=== PATIENT | female | born 1965 | race Caucasian/White ===

== ENCOUNTER → 2016-09-04 | Outpatient (CLI) | payer BC ==
--- NOTE | 2016-09-07 07:22 | MM ---
Reason for exam: clinical finding. Last mammogram was performed 1 year and 2 months ago. History: Patient is postmenopausal. Family history of premenopausal breast cancer in mother at age 31. Benign stereotactic core biopsy of the right breast, September 27, 2001. Core biopsy of the right breast. Took progesterone for 4 months beginning at age 50. Indicated problem(s): pain in the right breast. Physical Findings: Nurse Summary: 1cm nodule in the right breast at 1 o'clock (nurse mm). MG 3D Diag Mammo W/Cad CL[facility]ITA Bilateral CC and MLO view(s) were taken. Prior study comparison: June 27, 2015, bilateral MG screening mammo w CAD. December 25, 2013, bilateral MG screening mammo w CAD. The breast tissue is heterogeneously dense. This may lower the sensitivity of mammography. Previous mammotome biopsy in the right breast. No significant new findings when compared with previous films. These results were verbally communicated with the patient and result sheet given to the patient on 09/04/16. ASSESSMENT: Benign, BI-RAD 2 RECOMMENDATION: Routine screening mammogram of both breasts in 1 year.
--- NOTE | 2016-09-07 07:23 | USB ---
Reason for exam: clinical finding. History: Patient is postmenopausal. Family history of premenopausal breast cancer in mother at age 31. Benign stereotactic core biopsy of the right breast, September 27, 2001. Core biopsy of the right breast. Took progesterone for 4 months beginning at age 50. Indicated problem(s): pain in the right breast. US Breast Limited RT Right breast ultrasound demonstrates no cystic or solid lesion seen. These results were verbally communicated with the patient and result sheet given to the patient on 09/04/16. ASSESSMENT: Negative, BI-RAD 1 RECOMMENDATION: Routine screening mammogram of both breasts in 1 year.
== END | disposition home or self-care (01) ==
LOC: RADMAMWWP 15:33
PROVIDERS: ATTEND Obstetrics & Gynecology
DX: N64.4 Mastodynia (principal); Z80.3 Family history of malignant neoplasm of breast
CPT/HCPCS: 76642; G0204; G0279

== ENCOUNTER → 2017-02-05 | Outpatient (CLI) | payer BC | LOC: LABWHC1 16:57 | PROVIDERS: ATTEND Internal Medicine Endocrinology, Diabetes & Metabolism | DX: E03.8 Other specified hypothyroidism (principal) | CPT/HCPCS: 36415; 82533; 84443 ==

== ENCOUNTER → 2017-03-02 | Outpatient (CLI) | payer BC ==
--- NOTE | 2017-03-02 21:16 | US ---
EXAMINATION TYPE: US thyroid st tissue head/neck DATE OF EXAM: 03/02/2017 COMPARISON: NONE CLINICAL HISTORY: E03.8 Other specified Hypothyroidism. on thyroid meds for yrs GLAND SIZE: Right Lobe: 3.5 x 1.1 x 0.9 cm Overall Parenchyma: homogenous Left Lobe: 3.8 x 1.3 x 1.1 cm Overall Parenchyma: homogeneous Isthmus Thickness: 0.2 cm NODULES RIGHT: # of nodules measured on right: 0 LEFT: # of nodules measured on left: 0 ISTHMUS: # of nodules measured in the isthmus: 0 Bilateral neck scanned, no evidence of lymphadenopathy. Thyroid gland is overall small in size and homogeneous echotexture without evidence of worrisome grea ter than 1 cm solid or cystic nodules. IMPRESSION: Small thyroid gland without suspicious nodules.
== END | disposition home or self-care (01) ==
LOC: RADUSWWP 16:13
PROVIDERS: ATTEND Internal Medicine Endocrinology, Diabetes & Metabolism
DX: E03.8 Other specified hypothyroidism (principal)
CPT/HCPCS: 76536

== ENCOUNTER → 2017-08-17 | Outpatient (CLI) | payer BC ==
--- NOTE | 2017-08-17 17:40 | XR ---
EXAMINATION TYPE: XR chest 2V DATE OF EXAM: 08/17/2017 COMPARISON: NONE HISTORY: Rib pain TECHNIQUE: Frontal and lateral views of the chest are obtained. FINDINGS: Heart and mediastinum are normal. Lungs are clear. Diaphragm is normal. Bony thorax and so ft tissues appear normal. IMPRESSION: Normal chest
== END | disposition home or self-care (01) ==
LOC: RADXRMAIN 16:44
PROVIDERS: ATTEND Family Medicine
DX: R07.9 Chest pain, unspecified (principal)
CPT/HCPCS: 71046

== ENCOUNTER → 2017-10-25 | Outpatient (CLI) | payer BC ==
--- NOTE | 2017-10-25 17:45 | CT ---
EXAMINATION TYPE: CT pelvis w con DATE OF EXAM: 10/25/2017 COMPARISON: NONE HISTORY: Left inguinal hernia. CT DLP: 1357 mGycm Automated exposure control for dose reduction was used. CONTRAST: Performed with IV Contrast, patient injected with 100ml mL of Omnipaque 300. FINDINGS: Bladder distends smoothly. There is no free fluid in the pelvis. There are a few sigmoid diverticula. There is no sign of diverticulitis. Appendix appears normal. I see no evidence of a pelvic mass. [place] donnell appears to be absent. There is narrowing at L5-S1 disc space. Hip joints appear intact. There is no evidence of inguinal hernia. I see no bony destructive process. IMPRESSION: THERE ARE A FEW SIGMOID DIVERTICULA. NO EVIDENCE OF DIVERTICULITIS. OTHERWISE NEGATIVE EXAM. NO EVIDE NCE OF INGUINAL HERNIA.
== END | disposition home or self-care (01) ==
LOC: RADCTMAIN 15:53
PROVIDERS: ATTEND Surgery
DX: K57.30 Diverticulosis of large intestine without perforation or abscess without bleeding (principal)
CPT/HCPCS: 72193; Q9967

== ENCOUNTER 2017-11-12 12:38 | Day surgery (SDC) | payer BC ==
[2017-11-11 08:12] VITALS: BMI 30.5
[~2017-11-12 12:38] MED LIST: LACTATED RINGERS 1,000 ML IV SCH
[2017-11-12 13:45] VITALS: TEMP 97.9
[2017-11-12] MEDS ORDERED: LIDOCAINE 1% 20 ML VIAL (10MG/ML) FOR IV START INTRADERMA ONE (14:11)
[2017-11-12] MEDS ORDERED: FAMOTIDINE 20 MG/2 ML VIAL IVP ONE (14:15)
[2017-11-12] MEDS ORDERED: PROPOFOL 10 MG/ML 20 ML VIAL IV ONE (14:35)
[2017-11-12] MEDS ORDERED: LIDOCAINE 1% INJ 10MG/ML (20 ML MDV) ONE (14:35)
[2017-11-12] MEDS ORDERED: GLYCOPYRROLATE 0.2 MG/ML 2 ML VIAL ONE (14:35)
--- NOTE | 2017-11-12 14:39 | P.GSHP ---
History of Present Illness H&P Date: 11/12/17 Chief Complaint: GERD This a 52-year-old female referred from Dr. Blackman. Patient is today for EGD. She's had GERD symptoms. Past Medical History Past Medical History: GERD/Reflux, Thyroid Disorder Additional Past Medical History / Comment(s): HIATAL HERNIA, DURHAM'S ESOPHAGUS History of Any Multi-Drug Resistant Organisms: None Reported Past Surgical History: Hysterectomy Additional Past Surgical History / Comment(s): PREVIOUS EGD, BENIGN TUMOR REMOVED FROM SHOULDER, LAPROSCOPY Past Anesthesia/Blood Transfusion Reactions: Previous Problems w/ Anesthesia, Motion Sickness Additional Past Anesthesia/Blood Transfusion Reaction / Comment(s): STATES "I FREAK OUT IF THEY DON'T PUT ME OUT BEFORE THE MOUTHPIECE FOR EGD" Smoking Status: Current every day smoker - Past Family History Mother Family Medical History: Cancer Father Family Medical History: Cancer Medications and Allergies Home Medications Medication Instructions Recorded Confirmed Type Esomeprazole Magnesium [NexIUM] 40 mg PO DAILY 08/06/16 11/12/17 History Cholecalciferol (Vitamin D3) 2,000 unit PO DAILY 11/11/17 11/11/17 History [Vitamin D3] Levothyroxine Sodium [Tirosint] 88 mcg PO DAILY 11/11/17 11/11/17 History Magnesium Oxide [Mag-Ox] 250 mg PO DAILY 11/11/17 11/11/17 History buPROPion HCL [buPROPion HCL SR] 150 mg PO HS 11/11/17 11/12/17 History Allergies Allergy/AdvReac Type Severity Reaction Status Date / Time No Known Allergies Allergy Verified 11/11/17 08:08 Surgical - Exam Vital Signs Temp Pulse Resp BP Pulse Ox 97.9 F 59 L 18 102/58 100 11/12/17 13:43 11/12/17 13:43 11/12/17 13:43 11/12/17 13:43 11/12/17 13:43 - General well developed, no distress - Eyes PERRL - ENT normal pinna - Neck no masses - Respiratory normal expansion - Cardiovascular Rhythm: regular - Abdomen Abdomen: soft, non tender Assessment and Plan Assessment: GERD. We'll perform EGD.
--- NOTE | 2017-11-12 14:48 | P.OP ---
Date of Procedure: 11/12/17 Preoperative Diagnosis: GERD Postoperative Diagnosis: Antral gastritis No evidence of hiatal hernia Esophagitis Procedure(s) Performed: EGD Anesthesia: MAC Surgeon: Clive Davis Pathology: other (Antrum, esophagus) Condition: stable Disposition: PACU Description of Procedure: The patient's placed on the endoscopy table in the lateral position. She received IV sedation. The gastroscope placed oropharynx and passed into the esophagus and into the stomach. Scope was then placed through the pylorus. The first and second portion of the duodenum appeared normal. Scope was then brought back the antrum and this appeared mildly inflamed. A biopsy was performed. There was no evidence of a hiatal hernia. The GE junction was at 39 cm. The distal esophagus. Inflamed and a biopsies performed. The proximal esophagus appeared normal. Scope was withdrawn for patient.
[2017-11-12 14:55] VITALS: PULSE 86; RESP 16
[2017-11-12 15:08] VITALS: BP 116/71
== END 2017-11-12 15:34 | disposition home or self-care (01) ==
LOC: ORWHC2ENDO 12:38
PROVIDERS: ATTEND Surgery
DX: K29.60 Other gastritis without bleeding (principal); K21.0 Gastro-esophageal reflux disease with esophagitis; E07.9 Disorder of thyroid, unspecified; K22.70 Barrett's esophagus without dysplasia; F17.200 Nicotine dependence, unspecified, uncomplicated; Z79.899 Other long term (current) drug therapy
CPT/HCPCS: 88305; 43239; J2001; J2704

== ENCOUNTER → 2018-01-07 | Outpatient (CLI) | payer BC | END | disposition home or self-care (01) | LOC: LABWHC1 08:26 | PROVIDERS: ATTEND Internal Medicine Endocrinology, Diabetes & Metabolism | DX: R53.83 Other fatigue (principal); Z78.0 Asymptomatic menopausal state | CPT/HCPCS: 36415; 84403 ==

== ENCOUNTER → 2018-02-15 | Outpatient (CLI) | payer BC ==
--- NOTE | 2018-02-17 10:39 | MM ---
Reason for exam: screening (asymptomatic). Last mammogram was performed 1 year and 5 months ago. History: Patient is postmenopausal. Family history of premenopausal breast cancer in mother at age 31. Benign stereotactic core biopsy of the right breast, September 27, 2001. Core biopsy of the right breast. Took progesterone for 4 months beginning at age 50. Physical Findings: A clinical breast exam by your physician is recommended on an annual basis and results should be correlated with mammographic findings. MG 3D Screening Mammo W/Cad Bilateral CC and MLO view(s) were taken. Prior study comparison: September 04, 2016, bilateral MG 3d diag mammo w/cad [facility]. June 27, 2015, bilateral MG screening mammo w CAD. The breast tissue is heterogeneously dense. This may lower the sensitivity of mammography. No suspicious abnormality. Post biopsy change on the right. Right biopsy marker noted. No significant changes when compared with prior studies. ASSESSMENT: Benign, BI-RAD 2 RECOMMENDATION: Routine screening mammogram of both breasts in 1 year.
== END | disposition home or self-care (01) ==
LOC: RADMAMWWP 08:30
PROVIDERS: ATTEND Obstetrics & Gynecology
DX: Z12.31 Encounter for screening mammogram for malignant neoplasm of breast (principal)
CPT/HCPCS: 77063; 77067

== ENCOUNTER → 2018-04-01 | Outpatient (CLI) | payer BC | END | disposition home or self-care (01) | LOC: LABWHC1 09:38 | PROVIDERS: ATTEND Internal Medicine Endocrinology, Diabetes & Metabolism | DX: E03.8 Other specified hypothyroidism (principal) | CPT/HCPCS: 36415; 84403; 84443 ==

== ENCOUNTER → 2018-07-04 | Outpatient (CLI) | payer BC ==
--- NOTE | 2018-07-04 12:47 | FL ---
EXAMINATION: Upper GI examination DATE: 07/04/2018 CLINICAL INDICATION: 52-year-old female with gastroesophageal reflux disease, patient states history of Donohue's esophagus, complaining of GERD and burning in stomach. COMPARISON: None Total Fluoroscopy Time: 4 minutes 54 seconds Total images: 44 FINDINGS: The esophagus has a normal course, caliber, motility and mucosa. There is a tiny hiatal hernia. Mild spontaneous gastroesophageal reflux is encountered when the patie nt is brought supine. The stomach trace free of any persistent filling defect and demonstrate a normal mucosal pattern. No discrete polyp or ulcer is identified. There is significant delay in passage of contrast into the duodenum. No contrast is seen in the duode num after 10 minutes of waiting. The patient is brought back for further imaging 35 minutes later at which time, contrast opacifies multiple small bowel loops. Some residual contrast remains in stomach but the majority has progressed into the small bowel. The duodenum shows no discrete abnormality. IMPRESSION: 1. No suspicious filling defect or ulcer seen within the esophagus or stomach. 2. Tiny hiatal hernia and mild gastroesophageal reflux. 3. Delayed passage of contrast from the stomach into the duodenum with no passage after waiting 10 mi nutes. Correlate for any signs/symptoms of gastroparesis. If indicated, a nuclear medicine gastric em ptying study can be considered.
== END | disposition home or self-care (01) ==
LOC: RADFLWHC 08:07
PROVIDERS: ATTEND Physician Assistant
DX: K21.9 Gastro-esophageal reflux disease without esophagitis (principal); K44.9 Diaphragmatic hernia without obstruction or gangrene
CPT/HCPCS: 74240

== ENCOUNTER → 2018-11-17 | Outpatient (CLI) | payer BC | END | disposition home or self-care (01) | LOC: LABWHC1 17:05 | PROVIDERS: ATTEND Internal Medicine Endocrinology, Diabetes & Metabolism | DX: E03.8 Other specified hypothyroidism (principal) | CPT/HCPCS: 36415; 84403; 84443 ==

== ENCOUNTER → 2019-03-10 | Outpatient (CLI) | payer BC ==
[2019-03-10 16:31] LABS: Basophils # (A) 0.1 k/uL (0-0.2); Basophils % (A) 1 %; Eosinophils # (A) 0.2 k/uL (0-0.7); Eosinophils % (A) 3 %; Lymphocytes # (A) 2.5 k/uL (1.0-4.8); Lymphocytes % (A) 40 %; MCH 31.4 pg (25.0-35.0); MCHC 33.4 g/dL (31.0-37.0); Mean Platelet Volume 8.3; Monocytes # (A) 0.3 k/uL (0-1.0); Monocytes % (A) 5 %; Neutrophils # (A) 3.1 k/uL (1.3-7.7); Neutrophils % (A) 49 %; Platelet Count 318 k/uL (150-450); RBC 4.47 m/uL (3.80-5.40); RDW 13.7 % (11.5-15.5); WBC 6.3 k/uL (3.8-10.6)
[2019-03-10 23:27] LABS: African American GFR (CKD) 97.6 (60.0-200.0); Albumin 4.7 g/dL (3.80-4.90); Albumin/Globulin Ratio 2.47 (1.60-3.17); Anion Gap 6.9 mmol/L (4.00-12.00); BUN/Creat Ratio 18.75 Ratio (12.00-20.00); Calcium 9.9 mg/dL (8.7-10.3); Carbon Dioxide 25.1 mmol/L (21.6-31.8); Globulin 1.9 g/dL (1.6-3.3); Potassium 4.4 mmol/L (3.5-5.5); Total Bilirubin 0.5 mg/dL (0.2-1.2); Total Protein 6.6 g/dL (6.2-8.2)
[2019-03-10 23:34] LABS: T4, Free (Free Thyroxine) 1.1 ng/dL (0.80-1.80)
[2019-03-11 00:03] LABS: Cancer Antigen 19-9 13.5 U/mL (0.0-34.9)
== END | disposition home or self-care (01) ==
LOC: LABWHC1 15:52
PROVIDERS: ATTEND Family Medicine
DX: R14.0 Abdominal distension (gaseous) (principal); R30.0 Dysuria; R10.84 Generalized abdominal pain
CPT/HCPCS: 36415; 80053; 82105; 82378; 83615; 83690; 83721; 84439; 84443; 84478; 85025; 86301; 86304

== ENCOUNTER → 2019-04-03 | Outpatient (CLI) | payer BC ==
--- NOTE | 2019-04-04 11:16 | MM ---
Reason for exam: screening (asymptomatic). Last mammogram was performed 1 year and 2 months ago. History: Patient is postmenopausal. Family history of premenopausal breast cancer in mother at age 31. Benign stereotactic core biopsy of the right breast, September 27, 2001. Core biopsy of the right breast. Took progesterone for 4 months beginning at age 50. Physical Findings: A clinical breast exam by your physician is recommended on an annual basis and results should be correlated with mammographic findings. MG 3D Screening Mammo W/Cad Bilateral CC and MLO view(s) were taken. Prior study comparison: February 15, 2018, bilateral MG 3d screening mammo w/cad. September 04, 2016, bilateral MG 3d diag mammo w/cad [facility]. The breast tissue is heterogeneously dense. This may lower the sensitivity of mammography. Previous mammotome biopsy in the right breast. There is no discrete abnormality. ASSESSMENT: Benign, BI-RAD 2 RECOMMENDATION: Routine screening mammogram of both breasts in 1 year.
== END | disposition home or self-care (01) ==
LOC: RADMAMWWP 15:13
PROVIDERS: ATTEND Obstetrics & Gynecology
DX: Z12.31 Encounter for screening mammogram for malignant neoplasm of breast (principal); Z80.3 Family history of malignant neoplasm of breast
CPT/HCPCS: 77063; 77067

== ENCOUNTER → 2020-01-04 | Outpatient (CLI) | payer BC ==
--- NOTE | 2020-01-04 09:40 | USB ---
Reason for exam: clinical finding. History: Patient is postmenopausal. Family history of premenopausal breast cancer in mother at age 31. Benign stereotactic core biopsy of the right breast, September 27, 2001. Core biopsy of the right breast. Took progesterone for 1 year beginning at age 50. Indicated problem(s): pain in the right breast. Physical Findings: Nurse Summary: Patient complains of constant pain right upper outer quadrant x 2 months (nurse TM). US Breast RT Technologist: Carola Thomas Right complete breast ultrasound includes all four quadrants, the retroareolar region and axilla. Finding demonstrates a 0.8 x 0.6 x 0.5cm circular, cystic lesion at 9 o'clock with internal echoes, a 0.8 x 0.6 x 0.4cm irregular, mixed lesion at 9 o'clock and a 0.9 x 1.0 x 0.7cm spiculated lesion at 9 o'clock, taller than wide, biopsy recommended. These results were verbally communicated with the patient and result sheet given to the patient on 01/04/20. ASSESSMENT: Incomplete: need additional imaging evaluation, BI-RAD 0 RECOMMENDATION: Follow-up diagnostic mammogram and ultrasound core biopsy of the right breast. Patient will return at a later date for mammogram. Called Dr. Fofana's office with mammographic findings and has scheduled an appointment for the patient for 01/12/20 at 1:[address] Tucker. Biopsy scheduled for 01/15/20 at 12:20. PRELIMINARY REPORT CALLED AND FAXED TO DR. TUCKER ON 01/04/20.
== END | disposition home or self-care (01) ==
LOC: RADUSWWP 07:32
PROVIDERS: ATTEND Obstetrics & Gynecology
DX: N64.4 Mastodynia (principal)

== ENCOUNTER → 2020-01-12 | Outpatient (CLI) | payer BC | END | disposition home or self-care (01) | LOC: LABWHC1 10:10 | PROVIDERS: ATTEND Surgery | DX: Z11.59 Encounter for screening for other viral diseases (principal) ==

== ENCOUNTER → 2020-01-12 | Outpatient (CLI) | payer BC ==
[2020-01-12 13:21] VITALS: BP 108/74; PULSE 74; RESP 18; TEMP 97.9
--- NOTE | 2020-01-12 14:04 | P.GSHP ---
History of Present Illness H&P Date: 01/12/20 Chief Complaint: abnormal ultrasound right breast Mary Kay is a 54 year old white female with a complaint of pain in the right breast in the UOQ area seen in consultation for Dr. Blackman and Dr. Fofana. The pain has been persistent. The pain is described as sharp with pressure. No nipple discharge or changes. NO skin changes. NO history of trauma. She had a right breast detected core biopsy in 2001 which was benign. She had a bilateral mammogram performed this was benign BIRADS 2. After the pain started she had an ultrasound of the right breast and this revealed a 0.8 x 0.6 x 0.4 cm irregular mixed lesion at 9:00, and a 0.9 x 1 x 0.7 cm spiculated lesion at 9:00 tolerated wide for which biopsy is recommended. She then had a repeat right breast mammogram which did not show any specific lesions of concern. Caffeine: she drinks 5 cups/coffee day, and ice tea through the day Smokin08/17, 40 years second hand smoke: none chocolate: occasional hormones: Pellet placed for menopausal symptoms/estrogen and testosterone, placed every 4 months and she has had them for approximately 8 months. last one placed November 29 Katalina risk analysis: 5 year risk 2.6%, vs. 1.4 % lifetime risk: 17.9% vs. 10.4% Family History mother: breast cancer at 31, during , than a cancer in the other breast at 50, of breast cancer at 63; she had no genetic testing father: liver cancer, "drinker" Hormonal history: menarche: 13 , breast fed: no, age at first birst: 21 menopause: hysterectomy 2001 at 33 did not take ovaries, for endometriosis BCP: 1 year hormones: 8 months Surgical history: 1. Hysterectomy 2. Ganglion cyst left wrist 3. Benign tumor removed right shoulder Medical history: 1. Hypothyroid Social history: Smoking: Half a pack per day for 40 years Alcohol: Negative Drugs: Negative - Constitutional Constitutional: Denies chills, Denies fever - EENT Eyes: denies blurred vision, denies pain Ears: deny: decreased hearing, tinnitus Ears, nose, mouth and throat: Denies headache, Denies sore throat - Breasts Breasts: bilateral: as per HPI - Cardiovascular Cardiovascular: Denies chest pain, Denies shortness of breath - Respiratory Respiratory: Denies cough, Denies 7 - Gastrointestinal Gastrointestinal: Denies abdominal pain, Denies diarrhea, Denies nausea, Denies vomiting - Genitourinary (Female) Genitourinary: Denies dysuria, Denies hematuria - Menstruation Menstruation: Reports post hysterectomy - Musculoskeletal Comment: arthritis in knees Musculoskeletal: Reports as per HPI - Integumentary Integumentary: Denies pruritus, Denies rash - Neurological Neurological: Denies numbness, Denies weakness - Endocrine Endocrine: Denies fatigue, Denies weight change - Hematologic/Lymphatic Comment: none - Allergic/Immunologic Allergic/Immunologic: Reports as per HPI Past Medical History Past Medical History: GERD/Reflux, Thyroid Disorder Additional Past Medical History / Comment(s): HIATAL HERNIA. DURHAM'S ESOPHAGUS History of Any Multi-Drug Resistant Organisms: None Reported Past Surgical History: Hysterectomy Additional Past Surgical History / Comment(s): BENIGN TUMOR REMOVED FROM RIGHT SHOULDER. RIGHT BREAST EXCISIONAL BIOPSY-BENIGN- 1999. Past Anesthesia/Blood Transfusion Reactions: Previous Problems w/ Anesthesia, Motion Sickness Additional Past Anesthesia/Blood Transfusion Reaction / Comment(s): STATES "I FREAK OUT IF THEY DON'T PUT ME OUT BEFORE THE MOUTHPIECE FOR EGD" Past Psychological History: No Psychological Hx Reported Smoking Status: Current every day smoker Past Alcohol Use History: Rare Additional Past Alcohol Use History / Comment(s): SMOKES LESS THAN 1PPD FROM AGE 20 Past Drug Use History: None Reported - Past Family History Mother Family Medical History: Cancer Father Family Medical History: Cancer Medications and Allergies Home Medications Medication Instructions Recorded Confirmed Type Esomeprazole Magnesium [NexIUM] 40 mg PO DAILY 08/06/16 01/12/20 History Fexofenadine HCl [Helen Allergy] 180 mg PO DAILY 01/09/20 01/12/20 History Levothyroxine Sodium [Unithroid] 88 mcg PO DAILY 01/09/20 01/12/20 History Nicotine [Nicoderm Cq] 21 mg TRANSDERM DAILY 01/09/20 01/12/20 History predniSONE 1 mg PO DAILY 01/09/20 01/12/20 History Allergies Allergy/AdvReac Type Severity Reaction Status Date / Time grass pollen Allergy Rash/Hives Unverified 01/12/20 13:13 wheat Allergy Rash/Hives Unverified 01/12/20 13:13 Surgical - Exam Vital Signs Temp Pulse Resp BP Pulse Ox 97.9 F 74 18 108/74 98 01/12/20 13:15 01/12/20 13:15 01/12/20 13:15 01/12/20 13:15 01/12/20 13:15 BMI 33.5 - General well developed, no distress - Eyes normal ocular movement - ENT no hearing loss, no congestion - Neck no masses, trachea midline - Respiratory normal respiratory effort, clear to auscultation - Cardiovascular Rhythm: regular Heart Sounds: normal: S1, S2 - Abdomen Abdomen: soft, non tender, no guarding, no rigid, no rebound - Integumentary normal turgor - Neurologic no disoriented, no combative - Musculoskeletal normal gait, normal posture - Psychiatric oriented to time, oriented to person, oriented to place, speech is normal, memory intact breast exam: BRA 40DD inspection: Ptosis grade 2/3 No nipple inversion Palpation: Right breast: Multi-positional exam mild increase fullness right upper outer quadrant area near 9:00, no discrete dominant mass or nodule noted otherwise no masses or nodules of concern, fibrocystic changes Right axilla: No adenopathy of concern Left breast: Multi-positional exam fibrocystic changes no dominant mass or nodule of concern Left axilla: No adenopathy of concern Results Mammogram and ultrasound reviewed with Dr. Varma from radiology Assessment and Plan Assessment: Impression: 1. Radiographic abnormality right breast 2. Breast pain right breast upper outer quadrant 3. Fullness on examination right breast upper outer quadrant 4. Fibrocystic breast changes 5. Patient using hormone pellets/postmenopausal 6. Family history of breast cancer in mother at 31 7. high risk for breast cancer katalina risk analysis Plan: 1. Fibrocystic breast changes pain may be exacerbated by caffeine and hormones and smoking the patient understands this and may decrease the subcutaneous 3. Radiographic abnormality right breast at 9:00 ultrasound core biopsy recommended this was reviewed by radiology and if this is not benign specific the needle local excision is recommended 3. Family history of breast cancer in mother at 31. Recommend genetic testing for the patient. CC: DR. Blackman, and Dr. Fofana encounter 45 minutes, > 50% of time in planning and counselling Time with Patient: Greater than 30
--- NOTE | 2020-01-16 09:57 | MM ---
Reason for exam: follow-up at short interval from prior study. Last mammogram was performed 9 months ago. History: Patient is postmenopausal. Family history of premenopausal breast cancer in mother at age 31. Benign stereotactic core biopsy of the right breast, September 27, 2001. Core biopsy of the right breast. Took progesterone for 1 year beginning at age 50. Taking other hormone for 9 months. Physical Findings: See breast exam from 01/04/20. MG 3D Diag Mammo W/Cad RT CC, MLO, and ML view(s) were taken of the right breast. Prior study comparison: April 03, 2019, bilateral MG 3d screening mammo w/cad. February 15, 2018, bilateral MG 3d screening mammo w/cad. September 04, 2016, bilateral MG 3d diag mammo w/cad [facility]. The breast tissue is heterogeneously dense. This may lower the sensitivity of mammography. Previous mammotome biopsy in the right breast. No significant new findings when compared with previous films. These results were verbally communicated with the patient and result sheet given to the patient on 01/12/20. ASSESSMENT: Suspicious, BI-RAD 4 RECOMMENDATION: Ultrasound core biopsy of the right breast. (As recommended on 01/04/20 ultrasound)
== END | disposition home or self-care (01) ==
LOC: RADMAMWWP 10:50
PROVIDERS: ATTEND Surgery
DX: R92.8 Other abnormal and inconclusive findings on diagnostic imaging of breast (principal)
CPT/HCPCS: 77061; 77065

== ENCOUNTER → 2020-01-15 | Day surgery (SDC) | payer BC ==
[2020-01-15 11:42] VITALS: BP 111/74; PULSE 73; RESP 16; TEMP 98.2
--- NOTE | 2020-01-15 13:12 | USB ---
EXAMINATION TYPE: US discontinued breast bx RT DATE OF EXAM: 01/15/2020 CLINICAL HISTORY: 54-year-old female presents with lateral right breast pain and subsequent abnormal ultrasound. TECHNIQUE: Scanning of the 9:00 position of the right breast for the intended biopsy target. COMPARISON: 01/04/2020 FINDINGS: The procedure of ultrasound guided core biopsy was explained to the patient. Benefits, alternatives, and risks were discussed. An informed consent was then obtained. The patient was placed in supine positioning for imaging and for the procedure. Initial scanning shows the vertically oriented area of shadowing at the 9:00 position zone A just peripheral to the periareolar region. The area was scanned in real-time and is reproducible in the antiradial plane. However, in the radial plane, this area spreads out and shows no discrete target for biopsy. (Refer to image 9, 12, and 13). Findings and impression are discussed with the patient and decision is made for a 3 month follow-up ultrasound to reassess. Biopsy is deferred at this time. IMPRESSION: Biopsy deferred at this time as imaging in the radial plane shows the area in question at the 9:00 position to spread out. No discrete biopsy target remains. Three-month follow-up right breast ultrasound is recommended. Findings and impression discussed with the patient. MARISSA
== END ==
LOC: RADUSWWP 11:17
PROVIDERS: ATTEND Surgery
DX: R92.8 Other abnormal and inconclusive findings on diagnostic imaging of breast (principal); Z91.09 Other allergy status, other than to drugs and biological substances; Z91.018 Allergy to other foods

== ENCOUNTER → 2020-04-16 | Outpatient (CLI) | payer BC ==
--- NOTE | 2020-04-17 08:16 | USB ---
Reason for exam: follow-up at short interval from prior study. History: Patient is postmenopausal. Family history of premenopausal breast cancer in mother at age 31. US discontinued breast bx RT of the right breast, January 16, 2020. Benign stereotactic core biopsy of the right breast, September 27, 2001. Core biopsy of the right breast. Took progesterone for 1 year beginning at age 50. Taking other hormone for 9 months. Physical Findings: Nurse did not find any significant physical abnormalities on exam. US Breast Limited RT Technologist: Carola Thomas Right limited breast ultrasound including focal area of concern, retroareolar and axilla demonstrates a 0.7 x 0.6 x 0.5cm oval, hypoechoic lesion at 9 o'clock and a 0.7 x 0.7 x 0.6cm slightly lobular, hypoechoic lesion at 10 o'clock. Stable, likely debris filled cysts. No significant cystic or solid lesion greater than 0.50cm. These results were verbally communicated with the patient and result sheet given to the patient on 04/16/20. ASSESSMENT: Benign, BI-RAD 2 RECOMMENDATION: Follow-up diagnostic mammogram of both breasts.
--- NOTE | 2020-04-17 09:05 | MM ---
Reason for exam: additional evaluation requested from prior study. Last mammogram was performed 3 months ago. History: Patient is postmenopausal. Family history of premenopausal breast cancer in mother at age 31. US discontinued breast bx RT of the right breast, January 16, 2020. Benign stereotactic core biopsy of the right breast, September 27, 2001. Core biopsy of the right breast. Took progesterone for 1 year beginning at age 50. Taking other hormone for 9 months. MG 3D Diag Mammo W/Cad CL[facility] Bilateral CC and MLO view(s) were taken. Prior study comparison: January 12, 2020, right breast MG 3d diag mammo w/cad RT. April 03, 2019, bilateral MG 3d screening mammo w/cad. The breast tissue is heterogeneously dense. This may lower the sensitivity of mammography. Finding: There is a 5 mm indistinct round mass located 6-7 cm from the nipple in the lower quadrant, middle position of the left breast. Previous mammotome biopsy in the right breast. New finding since January 12, 2020 and April 03, 2019. These results were verbally communicated with the patient and result sheet given to the patient on 04/16/20. ASSESSMENT: Incomplete: need additional imaging evaluation, BI-RAD 0 RECOMMENDATION: Ultrasound of the left breast.
--- NOTE | 2020-04-17 09:12 | USB ---
Reason for exam: additional evaluation requested from abnormal screening. History: Patient is postmenopausal. Family history of premenopausal breast cancer in mother at age 31. US discontinued breast bx RT of the right breast, January 16, 2020. Benign stereotactic core biopsy of the right breast, September 27, 2001. Core biopsy of the right breast. Took progesterone for 1 year beginning at age 50. Taking other hormone for 9 months. US Breast Limited LT Technologist: Carola Thomas Left limited breast ultrasound including focal area of concern, retroareolar and axilla demonstrates a 0.7 x 0.7 x 0.4cm cystic, septated lesion at 5 o'clock, a 0.8 x 0.9 x 0.4cm cystic lesion at 6 o'clock and a 0.5 x 0.5 x 0.3cm cystic lesion at 6 o'clock. Thin walled cysts and thin walled cysts with thin septation These results were verbally communicated with the patient and result sheet given to the patient on 04/16/20. ASSESSMENT: Benign, BI-RAD 2 RECOMMENDATION: Routine screening mammogram of both breasts in 1 year.
== END | disposition home or self-care (01) ==
LOC: RADUSWWP 13:39
PROVIDERS: ATTEND Surgery
DX: R92.8 Other abnormal and inconclusive findings on diagnostic imaging of breast (principal)
CPT/HCPCS: 77062; 77066

== ENCOUNTER → 2020-11-06 | Outpatient (CLI) | payer BC | END | disposition home or self-care (01) | LOC: LABWHC1 15:07 | PROVIDERS: ATTEND Internal Medicine Endocrinology, Diabetes & Metabolism | DX: E03.8 Other specified hypothyroidism (principal) | CPT/HCPCS: 36415; 84443 ==

== ENCOUNTER → 2021-09-08 | Outpatient (CLI) | payer BC ==
--- NOTE | 2021-09-08 10:35 | US ---
EXAMINATION TYPE: US abdomen complete DATE OF EXAM: 09/08/2021 COMPARISON: NONE CLINICAL HISTORY: R10.9 ABD PAIN. EXAM MEASUREMENTS: Liver Length: 14.1 cm Gallbladder Wall: 0.2 cm CBD: 0.3 cm Spleen: 10.6 cm Right Kidney: 9.7 x 3.4 x 4.6 cm Left Kidney: 9.6 x 4.3 x 4.5 cm Patient of large body habitus. Technical limitations. Pancreas: wnl Liver: Increased attenuation Gallbladder: wnl Evidence for sonographic Yu's sign: No CBD: wnl Spleen: wnl Right Kidney: No hydronephrosis or masses seen, somewhat obscured by overlying bowel gas Left Kidney: No hydronephrosis or masses seen, somewhat obscured by overlying bowel gas Upper IVC: wnl Abd Aorta: wnl The visualized liver is fairly homogenous. The intrahepatic portion of the IVC and visualized abdomi nal aorta are within normal limits. There is no evidence of shadowing mobile cholelithiasis. Common bile duct is unremarkable. The visualized portions of the pancreas are homogenous. The spleen is u nremarkable. Kidneys are symmetric and free of hydronephrosis. No renal lesions are seen on images saved. IMPRESSION: Suboptimal study without acute finding identified
== END | disposition home or self-care (01) ==
LOC: RADUSWWP 09:37
PROVIDERS: ATTEND Family Medicine
DX: R10.9 Unspecified abdominal pain (principal)
CPT/HCPCS: 76700

== ENCOUNTER 2021-10-17 11:48 | Day surgery (SDC) | payer BC ==
[2021-10-17] MEDS ORDERED: LACTATED RINGERS 1,000 ML IV SCH (12:01)
[2021-10-17] MEDS ORDERED: PROPOFOL 10 MG/ML 20 ML VIAL IV ONE (12:25)
[2021-10-17 12:27] VITALS: RESP 16; TEMP 97.9
--- NOTE | 2021-10-17 12:37 | P.PCN ---
Date of Procedure: 10/17/21 Procedure(s) Performed: BRIEF HISTORY: Patient is a 56-year-old, pleasant, white female scheduled for an upper endoscopy as a part of evaluation of long-standing history of GERD and surveillance of [place]'s esophagus.. She is currently on Nexium as well as Carafate and still has breakthrough heartburn PROCEDURE PERFORMED: Esophagogastroduodenoscopy biopsy. PREOPERATIVE DIAGNOSIS: GERD/[place]'s esophagus. IV sedation per anesthesia. PROCEDURE: After informed consent was obtained, the patient was brought into the endoscopy unit. IV sedation was administered by Anesthesia under continuous monitoring. Initially the Olympus GIF-140 video endoscope was inserted into the mouth. Esophagus intubated without any difficulty. It was gradually advanced into the stomach and duodenum and carefully examined. The bulb and the second part of the duodenum appeared normal. The scope at this time was withdrawn to the stomach, adequately insufflated with air, and upon careful examination, mucosa of the antrum, body, cardia and the fundus appeared normal. The scope was then withdrawn into the esophagus. The GE junction was located at 35 cm from the incisors. Moderate size hiatal hernia noted. There were 2 short tongues of [place]'s appearing mucosa extending 3-4 mm proximal to the GE junction which was biopsied. The ~esophagus appeared normal. There were no erosions or ulcerations seen and the patient tolerated the procedure well. IMPRESSION: 1.Moderate size hiatal hernia. 2.Short segemnt washing[place]'s esophagus s/p biopsy. RECOMMENDATIONS: The findings of this examination were discussed with the patient .. She was advised to follow with the biopsy results. If the biopsy confirms the presence of [place]'s esophagus he can have a repeat upper endoscopy in 3 years. In the meantime she will continue with Nexium 40 mg daily as well as Carafate as needed.
[2021-10-17 13:17] VITALS: BP 116/70; PULSE 82
== END 2021-10-17 13:26 | disposition home or self-care (01) ==
LOC: ORWHC2ENDO 11:48
PROVIDERS: ATTEND Internal Medicine Gastroenterology
DX: K21.01 Gastro-esophageal reflux disease with esophagitis, with bleeding (principal); Z79.899 Other long term (current) drug therapy; K41.90 Unilateral femoral hernia, without obstruction or gangrene, not specified as recurrent; Z90.710 Acquired absence of both cervix and uterus; Z98.890 Other specified postprocedural states
CPT/HCPCS: 88305; 43239; J2704

== ENCOUNTER → 2021-12-01 | Outpatient (CLI) | payer BC | END | disposition home or self-care (01) | LOC: LABWHC1 12:13 | PROVIDERS: ATTEND Internal Medicine Endocrinology, Diabetes & Metabolism | DX: E03.8 Other specified hypothyroidism (principal) | CPT/HCPCS: 36415; 84443 ==

== ENCOUNTER → 2021-12-26 | Outpatient (CLI) | payer BC ==
--- NOTE | 2021-12-26 10:31 | MM ---
Reason for exam: additional evaluation requested from abnormal screening. Last mammogram was performed less than 1 month ago. History: Patient is postmenopausal. Family history of premenopausal breast cancer in mother at age 31. US discontinued breast bx RT of the right breast, January 16, 2020. Benign stereotactic core biopsy of the right breast, September 27, 2001. Core biopsy of the right breast. Took progesterone for 1 year beginning at age 50. Taking other hormone for 9 months. Physical Findings: A clinical breast exam by your physician is recommended on an annual basis and results should be correlated with mammographic findings. MG 3D Work Up W/Cad LT LM and spot compression MLO view(s) were taken of the left breast. Prior study comparison: December 23, 2021, bilateral MG 3d screening mammo w/cad. April 16, 2020, bilateral MG 3d diag mammo w/cad [facility]. The breast tissue is heterogeneously dense. This may lower the sensitivity of mammography. There is no discrete abnormality. No significant new findings when compared with previous films. Results were given to the patient verbally at the time of the exam. ASSESSMENT: Negative, BI-RAD 1 RECOMMENDATION: Return to routine screening mammogram schedule for both breasts.
== END | disposition home or self-care (01) ==
LOC: RADMAMWWP 09:35
PROVIDERS: ATTEND Family Medicine
DX: R92.8 Other abnormal and inconclusive findings on diagnostic imaging of breast (principal); Z78.0 Asymptomatic menopausal state; Z80.3 Family history of malignant neoplasm of breast
CPT/HCPCS: 77061; 77065

== ENCOUNTER → 2022-06-27 | Outpatient (CLI) | payer BC ==
[2022-06-27 16:39] LABS: T4, Free (Free Thyroxine) 1.2 ng/dL (0.800-1.800)
== END | disposition home or self-care (01) ==
LOC: LABWHC1 11:47
PROVIDERS: ATTEND Internal Medicine Endocrinology, Diabetes & Metabolism
DX: E03.8 Other specified hypothyroidism (principal)
CPT/HCPCS: 36415; 84439; 84443

== ENCOUNTER → 2022-07-13 | Outpatient (CLI) | payer BC ==
[2022-07-14 00:37] LABS: Estradiol 21.3 pg/mL; Follicle Stimulating Hormone 56.8 mIU/mL
== END | disposition home or self-care (01) ==
LOC: LABWHC1 13:38
PROVIDERS: ATTEND Obstetrics & Gynecology
DX: N95.1 Menopausal and female climacteric states (principal); E34.50 Androgen insensitivity syndrome, unspecified
CPT/HCPCS: 36415; 82670; 83001; 84144; 84403

== ENCOUNTER 2023-01-22 05:55 | Day surgery (SDC) | payer BC ==
[2023-01-19 12:43] VITALS: BMI 34.9
[~2023-01-22 05:55] MED LIST changes: +DEXAMETHASONE SOD PHOSPHATE 4 MG/ML 1 ML VIAL IV ONE; +LIDOCAINE 1% (10MG/ML) FOR IV START INTRADERMA PRN; +MIDAZOLAM 2 MG/2 ML VIAL IV PRN; +ONDANSETRON 4 MG/2 ML VIAL IVP ONE
[2023-01-22] MEDS ORDERED: MIDAZOLAM 2 MG/2 ML VIAL IVP ONE ×2 (06:56→07:00)
[2023-01-22] MEDS ORDERED: HYDROmorphone 0.5 MG/0.5 ML SYRINGE IVP PRN (07:00)
[2023-01-22 07:10] VITALS: RESP 16
[2023-01-22] MEDS ORDERED: ePHEDrine 50 MG/ML 1 ML VIAL ONE (07:25)
[2023-01-22] MEDS ORDERED: fentaNYL (PF) 50 MCG/ML 2 ML AMP ONE (07:25)
[2023-01-22] MEDS ORDERED: LIDOCAINE 2% INJ 20 MG/ML (2 ML VIAL) ONE (07:25)
[2023-01-22] MEDS ORDERED: PROPOFOL 10 MG/ML 20 ML VIAL IV ONE (07:25)
[2023-01-22] MEDS ORDERED: SUCCINYLCHOLINE CHLORIDE 200 MG/10 ML VIAL IV ONE (07:25)
[2023-01-22] MEDS ORDERED: ROPIVACAINE 5 MG/ML 30 ML VIAL ONE (07:25)
[2023-01-22] MEDS ORDERED: PHENYLEPHRINE-0.9% NACL SYG 1,000 MCG/10 ML SYRINGE ONE (07:25)
[2023-01-22] MEDS ORDERED: ceFAZolin 1,000 MG in SODIUM CHLORIDE 0.9% 1,000 ML IRRIGATION ONE (07:27)
[2023-01-22] MEDS ORDERED: LACTATED RINGERS 1,000 ML IV ONE (08:23)
--- NOTE | 2023-01-22 08:40 | P.OP ---
Date of Procedure: 01/22/23 Preoperative Diagnosis: Hallux rigidus left foot Postoperative Diagnosis: Same Procedure(s) Performed: First metatarsal phalangeal joint arthrodesis left foot Implants: Arthrex MaxForce plate with screws Anesthesia: MAYURI Surgeon: Goyo Carrasco Estimated Blood Loss (ml): 1 Pathology: none sent Condition: stable Disposition: PACU Description of Procedure: Prior to the patient being brought to the operating room, anesthesia administered a nerve block on the surgical extremity. Then the patient was brought into the operating room and placed on table in the supine position. Timeout was taken to confirm correct patient identifiers, correct lateral surg zenon, and correct procedure. Once the staff in the room were in agreement with the timeout, the patient was induced and placed under general anesthesia. A well-padded tourniquet was placed on the ankle and then the foot was prepped and draped in the usual manner. The right foot was exsanguinated and the tourniquet inflated to 250 mmHg. Attention was directed over the dorsal aspect of the first metatarsal phalangeal joint, where a linear incision was made between the long extensor tendon and the neurovascular structures. The incision was deepened down to the subcutaneous layer careful to identify, avoid, and retract any neurovascular structures and cauterize any bleeding vessels. Blunt dissection was continued through the subcutaneous layer down to the periosteum and capsule. A linear periosteal and capsular incision was made medial to the long extensor tendon. Those tissues were then sharply reflected off of the first metatarsal head and shaft as well as the base of the proximal phalanx. The soft tissue was released around the joint so that the joint could be mobilized and accessed. A guidewire was placed through the central aspect of the first metatarsal head parallel to the long access and within the medullary canal. Appropriate size reamers were used to shape the first metatarsal head. Then a concave reamer was inserted over the guidewire and used to remove the articular cartilage and subchondral bone. The wire was removed was used to aggressively fenestrate the head of the first metatarsal. The guidewire was then inserted at the central aspect of the articular surface of the base of the proximal phalanx. The wire was advanced parallel to the long access and within the medullary canal. The convex reamer was then used to remove the articular cartilage and subchondral bone. The guidewire was removed and used to fenestrate the surface. The wound is then thoroughly irrigated with antibiotic saline. Arthrex Arthrocell was placed between the arthrodesis segments. A 0 band first metatarsal phalangeal joint fusion plate was then positioned dorsally over the site. Temporary fixation was used to hold the plate in place. Fluoroscopy was used to check the placement of the plate as well as the joint alignment. Once both positions were satisfactory, a combination of locking and nonlocking screws were placed in the distal part of the plate into the proximal phalanx. The position of the joint and plate were checked again under fluoroscopy. Once both were satisfactory, a wire was placed in the base of the proximal phalanx and across the arthrodesis site to maintain the alignment. The offset drill guide was then placed in the compression slot of the plate. The guide was removed and then the compression device was inserted through the drill hole in engaged with the plate. The compression device was turned to further compress the joint. While holding a compressed another temporary fixation wire was used to hold it in place. A drill hole through the proximal compression slot was then made and a nonlocking screw was inserted and tightened until it engaged the plate and provided further compression across the arthrodesis site. A nonlocking screw was then placed in the drill hole in the proximal aspect of the plate closest to the joint line. The final screw was a locking screw placed in the most proximal hole the plate. Final fluoroscopic imaging showed proper placement of all hardware, maintaining correction of the joint, and excellent compression across the arthrodesis site. The temporary fixation wire was removed and the joint thoroughly irrigated with antibiotic saline. The capsule and periosteal tissues were closed with 0 Vicryl. Subcu closure was done with 4-0 Monocryl. And skin closure was done with 4-0 Stratafix in a running subcuticular manner. Dermal glue was placed around the incision, and once dried, Steri-Strips are placed across incision. An Arthrex jumpstart dressing was placed directly over the incision and then a dry sterile dressings applied to the right foot. The tourniquet was released and capillary refill return to all digits on the right foot. The patient was then placed in a well-padded, well molded plaster posterior mold/sugar tong splint. The ankle was held in neutral position until the splint was dried. Then anesthesia was reversed and the patient was taken recovery with vital signs stable.
[2023-01-22 08:47] VITALS: TEMP 97.6
[2023-01-22 09:47] VITALS: BP 109/69; PULSE 79
--- NOTE | 2023-01-22 10:01 | P.ANPRN ---
Procedure Note - Anesthesia - Nerve Block Performed Right Popliteal Single Time Out Performed: Yes Date of Procedure: 01/22/23 Procedure Start Time: 06:56 Procedure Stop Time: 06:58 Location of Patient: PreOp Indication: Acute Post-Operative Pain, Requested by Surgeon Sedation Type: Sedate with meaningful contact maintained Preparation: Sterile Prep Position: Supine Needle Types: Pajunk Needle Gauge: 21 Ultrasound used to visualize needle placement: Yes Ultrasound used to observe medication spread: Yes Injectate: 0.5% Ropivacaine (see comment for volume) (20) Blood Aspirated: No Pain Paresthesia on Injection Noted: No Resistance on Injection: Normal Image Stored and Saved: Yes Events: Uneventful and Well Tolerated Right Adductor Canal Single Time Out Performed: Yes Date of Procedure: 01/22/23 Procedure Start Time: 06:59 Procedure Stop Time: 07:01 Location of Patient: PreOp Indication: Acute Post-Operative Pain, Requested by Surgeon Sedation Type: Sedate with meaningful contact maintained Preparation: Sterile Prep Position: Supine Needle Types: Pajunk Needle Gauge: 21 Ultrasound used to visualize needle placement: Yes Ultrasound used to observe medication spread: Yes Injectate: 0.5% Ropivacaine (see comment for volume) (10) Blood Aspirated: No Pain Paresthesia on Injection Noted: No Resistance on Injection: Normal Image Stored and Saved: Yes Events: Uneventful and Well Tolerated
== END 2023-01-22 10:42 | disposition home or self-care (01) ==
LOC: OR 05:55
PROVIDERS: ATTEND Podiatrist
DX: M20.22 Hallux rigidus, left foot (principal); G89.18 Other acute postprocedural pain; E07.9 Disorder of thyroid, unspecified; K21.9 Gastro-esophageal reflux disease without esophagitis; Z87.891 Personal history of nicotine dependence; Z79.890 Hormone replacement therapy; Z79.1 Long term (current) use of non-steroidal anti-inflammatories (NSAID)
CPT/HCPCS: 28750; 64445; 64447; J2250; J1100; J0690 ×2; J2405

== ENCOUNTER → 2023-06-07 | Outpatient (CLI) | payer BC | END | disposition home or self-care (01) | LOC: LABWHC1 16:09 | PROVIDERS: ATTEND Family Medicine | DX: Z53.9 Procedure and treatment not carried out, unspecified reason (principal) ==

== ENCOUNTER → 2023-07-09 | Outpatient (CLI) | payer BC ==
--- NOTE | 2023-07-12 07:51 | MM ---
Reason for Exam: Screening (asymptomatic). Last mammogram was performed 1 year(s) and 6 month(s) ago. Patient History: Menarche at age 12. First Full-Term at age 21. Hysterectomy at age 43. Postmenopausal. Progesterone for 1 year from age 50 until age 50. Core Biopsy on the Right side. 09/27/2001, Benign Stereotactic Core Biopsy on the right side. 01/16/2020, US discontinued breast bx RT on the right side. Mother had breast cancer, age 31. Risk Values: Giselle 5 year model risk: 3.7%. NCI Lifetime model risk: 20.9%. Prior Study Comparison: 04/16/2020 Bilateral Diagnostic Mammogram, [facility]. 12/23/2021 Bilateral Screening Mammogram, [facility]. 12/26/2021 Left Diagnostic Mammogram, [facility]. Tissue Density: There are scattered fibroglandular densities. Findings: Analyzed By CAD. There is no suspicious group of microcalcifications or new suspicious mass. Overall Assessment: Negative, BI-RAD 1 Management: Screening Mammogram of both breasts in [address] [facility] will attempt to contact patient to return for supplemental views and ultrasound if indicated. Patient should continue monthly self-breast exams. A clinical breast exam by your physician is recommended on an annual basis. This exam should not preclude additional follow-up of suspicious palpable abnormalities. Note on Giselle scores and lifetime risk: 1. A Giselle score greater than 3% is considered moderate risk. If this is the case, consider specialist referral to assess eligibility for a risk reducing agent. 2. If overall lifetime risk for the development of breast cancer is 20% or higher, the patient may qualify for future screening with alternating mammogram and breast MRI. Electronically signed and approved by: Nelson Gregory DO
== END | disposition home or self-care (01) ==
LOC: RADMAMWWP 15:59
PROVIDERS: ATTEND Obstetrics & Gynecology
DX: Z12.31 Encounter for screening mammogram for malignant neoplasm of breast (principal); Z78.0 Asymptomatic menopausal state; Z80.3 Family history of malignant neoplasm of breast
CPT/HCPCS: 77063; 77067

== ENCOUNTER 2024-01-31 19:49 | Emergency (ER) | payer BC ==
[2024-01-31 19:58] VITALS: TEMP 98.1
--- NOTE | 2024-01-31 20:10 | ED ---
General Adult HPI - General Source: patient, RN notes reviewed Mode of arrival: ambulatory Limitations: no limitations <Roman Barry - Last Filed: 01/31/24 20:09> <Terrence Patel - Last Filed: 01/31/24 21:55> - General Chief complaint: Upper Respiratory Infection Stated complaint: Chest Pain,Cough,Sob Time Seen by Provider: 01/31/24 20:04 - History of Present Illness Initial comments: Quick note 58-year-old female presenting to the ED with a chief complaint of cough. Patient reports completing course of doxycycline and steroids yesterday. Despite this notes continued cough prompting presentation to the ED for further evaluation. (Roman Barry) 58-year-old female presenting with chief complaint of cough. Patient has had a cough for about 5 to 7 days. Patient is a smoker, smokes about 12 cigarettes/day. She recently finished what sounds to be a Z-Jose and was given IM Decadron at her doctor's office one week ago. She states that when she tries to take a deep breath she starts having some coughing. She does have some generalized chest soreness from the coughing, this only occurs during her coughing fits. No fevers. No lower extremity swelling. No dizziness. (Terrence Patel) - Related Data Home Medications Medication Instructions Recorded Confirmed Esomeprazole Magnesium [NexIUM] 40 mg PO QAM 08/06/16 01/22/23 Fexofenadine HCl [Helen Allergy] 1 tab PO HS 10/16/21 01/22/23 Levothyroxine Sodium [Synthroid] 75 mcg PO QAM 01/19/23 01/22/23 Previous Rx's Medication Instructions Recorded HYDROcodone/APAP 7.5-325MG [Eidson 1 tab PO Q4-6H PRN #30 tab 01/22/23 7.5-325] Albuterol Sulfate [Albuterol 1 puff PO Q4-6H PRN #8.5 gm 01/31/24 Sulfate Hfa] Benzonatate [Tessalon Perles] 100 mg PO TID PRN #9 capsule 01/31/24 methylPREDNISolone Dose Pack 4 mg PO DIRECTED #1 packet 01/31/24 [Medrol Dose Pack] Allergies Allergy/AdvReac Type Severity Reaction Status Date / Time grass pollen Allergy Rash/Hives Verified 01/22/23 06:17 Latex, Natural Rubber Allergy Rash/Hives Verified 01/22/23 06:17 wheat Allergy Rash/Hives Verified 01/22/23 06:17 adhesive AdvReac Rash/Hives Verified 01/22/23 06:17 gluten AdvReac Nausea & Verified 01/31/24 19:59 Vomiting & Diarrhea green chavez AdvReac Nausea & Verified 01/31/24 19:59 Vomiting & Diarrhea Review of Systems ROS Other: All systems not noted in ROS Statement are negative. <Roman Barry - Last Filed: 01/31/24 20:09> ROS Other: All systems not noted in ROS Statement are negative. <Terrence Patel - Last Filed: 01/31/24 21:55> ROS Statement: Those systems with pertinent positive or pertinent negative responses have been documented in the HPI. Past Medical History Past Medical History: GERD/Reflux, Osteoarthritis (OA), Skin Disorder, Thyroid Disorder Additional Past Medical History / Comment(s): HIATAL HERNIA. DURHAM'S ESOPHAGUS. EXTREMELY SENSITIVE SKIN-RASH AND HIVES FREQUENTLY History of Any Multi-Drug Resistant Organisms: None Reported Past Surgical History: Hysterectomy Additional Past Surgical History / Comment(s): BENIGN TUMOR REMOVED FROM RIGHT SHOULDER. RIGHT BREAST EXCISIONAL BIOPSY-BENIGN- 1999. Past Anesthesia/Blood Transfusion Reactions: No Reported Reaction, Motion Sickness Additional Past Anesthesia/Blood Transfusion Reaction / Comment(s): STATES "I FREAK OUT IF THEY DON'T PUT ME OUT BEFORE THE MOUTHPIECE FOR EGD" Past Psychological History: No Psychological Hx Reported Smoking Status: Former smoker Past Alcohol Use History: Rare Past Drug Use History: None Reported - Past Family History Mother Family Medical History: Cancer Father Family Medical History: Cancer <Roman Barry - Last Filed: 01/31/24 20:09> General Exam Limitations: no limitations <Roman Barry - Last Filed: 01/31/24 20:09> Limitations: no limitations General appearance: alert, in no apparent distress Head exam: Present: atraumatic, normocephalic Eye exam: Present: normal appearance, EOMI Neck exam: Present: normal inspection. Absent: meningismus Respiratory exam: Present: wheezes. Absent: respiratory distress, rales, rhonchi, stridor Cardiovascular Exam: Present: regular rate, normal rhythm, normal heart sounds. Absent: systolic murmur, diastolic murmur, rubs, gallop, clicks Extremities exam: Absent: pedal edema Neurological exam: Present: alert, oriented X3 Psychiatric exam: Present: normal affect, normal mood Skin exam: Present: normal color <Terrence Patel - Last Filed: 01/31/24 21:55> Course Vital Signs 01/31/24 01/31/24 01/31/24 19:55 21:12 21:21 Temperature 98.1 F Pulse Rate 75 72 76 Respiratory 18 Rate Blood Pressure 114/72 O2 Sat by Pulse 98 Oximetry Medical Decision Making - Lab Data Result diagrams: 01/31/24 20:01 01/31/24 20:01 <Terrence Patel - Last Filed: 01/31/24 21:55> - Medical Decision Making Was pt. sent in by a medical professional or institution (, PA, NURSING PROGRAM CHAIR, urgent care, hospital, or longterm...) When possible be specific @ -No Did you speak to anyone other than the patient for history (EMS, parent, family, police, friend...)? What history was obtained from this source @ -No Did you review nursing and triage notes (agree or disagree)? Why? @ -I reviewed and agree with nursing and triage notes Were old charts reviewed (outside hosp., previous admission, EMS record, old EKG, old radiological studies, urgent care reports/EKG's, longterm records)? Report findings @ -No old charts were reviewed Differential Diagnosis (chest pain, altered mental status, abdominal pain women, abdominal pain men, vaginal bleeding, weakness, fever, dyspnea, syncope, headache, dizziness, GI bleed, back pain, seizure, CVA, palpatations, mental health, musculoskeletal)? @ -MDM Differential Dyspnea: Coronary syndrome, arrhythmia, tamponade, asthma, COPD, pulmonary embolism, pneumonia, pneumothorax, pulmonary effusion, anaphylaxis, diabetic ketoacidosis, flailed chest, pulmonary contusion, diaphragmatic rupture, anemia, neuromuscular this is not meant to be an all-inclusive list. EKG interpreted by me (3pts min.). @ -As above X-rays interpreted by me (1pt min.). @ -Chest x-ray shows no acute cardiopulmonary disease/process CT interpreted by me (1pt min.). @ -None done U/S interpreted by me (1pt. min.). @ -None done What testing was considered but not performed or refused? (CT, X-rays, U/S, labs)? Why? @ -None What meds were considered but not given or refused? Why? @ -None Did you discuss the management of the patient with other professionals (professionals i.e. , PA, NURSING PROGRAM CHAIR, lab, RT, psych nurse, social professionals, round boner, teacher, motorized squad commanding officer, pillowcase cutter)? Give summary @ -No Was smoking cessation discussed for >3mins.? @ -I counseled the patient for smoking cessation for greater than 3 minutes Was critical care preformed (if so, how long)? @ -No Were there social determinants of health that impacted care today? How? (Homelessness, low income, unemployed, alcoholism, drug addiction, transportation, low edu. Level, literacy, decrease access to med. care, fdc, rehab)? @ -No Was there de-escalation of care discussed even if they declined (Discuss DNR or withdrawal of care, Hospice)? DNR status @ -No What co-morbidities impacted this encounter? (DM, HTN, Smoking, COPD, CAD, Cancer, CVA, ARF, Chemo, Hep., AIDS, mental health diagnosis, sleep apnea, morbid obesity)? @ -Smoking Was patient admitted / discharged? Hospital course, mention meds given and route, prescriptions, significant lab abnormalities, going to OR and other pertinent info. @ -58-year-old female presenting with chief complaint of cough. Ongoing for about a week. Current smoker. On exam wheezes are heard on auscultation. WBC 18.9, attributed to recent steroid use. Negative for influenza, RSV, COVID. Chest x-ray shows no acute process. Patient was treated with DuoNeb, Solu- Medrol 125 mg, she will be provided with an albuterol inhaler and Tessalon Perles for home. Discharged. Follow-up with PCP. Report back to ER with any new or worsening symptoms. Discussed return parameters and answered all questions. Patient conveyed verbal understanding and agreed to the plan. I discussed this case in detail with my attending Dr. Rodriguez Undiagnosed new problem with uncertain prognosis? @ -No Drug Therapy requiring intensive monitoring for toxicity (Heparin, Nitro, Insulin, Cardizem)? @ -No Were any procedures done? @ -No Diagnosis/symptom? @ -Bronchitis Acute, or Chronic, or Acute on Chronic? @ -Acute Uncomplicated (without systemic symptoms) or Complicated (systemic symptoms)? @ -Uncomplicated Side effects of treatment? @ -No Exacerbation, Progression, or Severe Exacerbation? @ -No Poses a threat to life or bodily function? How? (Chest pain, USA, OR, pneumonia, PE, COPD, DKA, ARF, appy, cholecystitis, CVA, Diverticulitis, Homicidal, Suicidal, threat to staff... and all critical care pts) @ -Unlikely (Terrence Patel) - Lab Data Lab Results 01/31/24 01/31/24 01/31/24 Range/Units 20:01 20:01 20:02 WBC 18.9 H (3.8-10.6) k/uL RBC 4.72 (3.80-5.40) m/uL Hgb 14.7 (11.4-16.0) gm/dL Hct 45.2 (34.0-46.0) % MCV 95.9 (80.0-100.0) fL MCH 31.2 (25.0-35.0) pg MCHC 32.6 (31.0-37.0) g/dL RDW 12.3 (11.5-15.5) % Plt Count 363 (150-450) k/uL MPV 9.2 Neutrophils % 71 % Lymphocytes % 20 % Monocytes % 6 % Eosinophils % 1 % Basophils % 1 % Neutrophils # 13.5 H (1.3-7.7) k/uL Lymphocytes # 3.7 (1.0-4.8) k/uL Monocytes # 1.2 H (0-1.0) k/uL Eosinophils # 0.2 (0-0.7) k/uL Basophils # 0.1 (0-0.2) k/uL Sodium 135 L (137-145) mmol/L Potassium 4.2 (3.5-5.1) mmol/L Chloride 103 (98-107) mmol/L Carbon Dioxide 26 (22-30) mmol/L Anion Gap 6 mmol/L BUN 16 (7-17) mg/dL Creatinine 0.92 (0.52-1.04) mg/dL Est GFR (CKD-EPI)AfAm 80 (>60 ml/min/1.73 sqM) Est GFR (CKD-EPI)NonAf 69 (>60 ml/min/1.73 sqM) Glucose 85 (74-99) mg/dL Calcium 9.2 (8.4-10.2) mg/dL Total Bilirubin 0.5 (0.2-1.3) mg/dL AST 25 (14-36) U/L ALT 23 (4-34) U/L Alkaline Phosphatase 97 (38-126) U/L Total Protein 6.2 L (6.3-8.2) g/dL Albumin 3.8 (3.5-5.0) g/dL Influenza Type A (PCR) Not Detected (Not Detectd) Influenza Type B (PCR) Not Detected (Not Detectd) RSV (PCR) Not Detected (Not Detectd) SARS-CoV-2 (PCR) Not Detected (Not Detectd) Disposition <Roman Barry - Last Filed: 01/31/24 20:09> Is patient prescribed a controlled substance at d/c from ED?: No Time of Disposition: 21:37 <Terrence Patel - Last Filed: 01/31/24 21:55> Clinical Impression: Bronchitis Disposition: HOME SELF-CARE Condition: Good Instructions (If sedation given, give patient instructions): Acute Bronchitis (ED) Additional Instructions: Follow-up with PCP. Report back to ER with any new or worsening symptoms. Prescriptions: Albuterol Sulfate [Albuterol Sulfate Hfa] 1 puff PO Q4-6H PRN #8.5 gm PRN Reason: Shortness Of Breath methylPREDNISolone Dose Pack [Medrol Dose Pack] 4 mg PO DIRECTED #1 packet Benzonatate [Tessalon Perles] 100 mg PO TID PRN #9 capsule PRN Reason: Cough Referrals: Aliza Blackman MD [Primary Care Provider] - 1-2 days
[2024-01-31 20:18] LABS: Basophils # (A) 0.1 k/uL (0-0.2); Basophils % (A) 1 %; Eosinophils # (A) 0.2 k/uL (0-0.7); Eosinophils % (A) 1 %; HCT 45.2 % (34.0-46.0); HGB 14.7 gm/dL (11.4-16.0); Lymphocytes # (A) 3.7 k/uL (1.0-4.8); Lymphocytes % (A) 20 %; MCH 31.2 pg (25.0-35.0); MCHC 32.6 g/dL (31.0-37.0); MCV 95.9 fL (80.0-100.0); Mean Platelet Volume 9.2; Monocytes # (A) 1.2 k/uL (0-1.0); Monocytes % (A) 6 %; Neutrophils # (A) 13.5 k/uL (1.3-7.7); Neutrophils % (A) 71 %; Platelet Count 363 k/uL (150-450); RBC 4.72 m/uL (3.80-5.40); RDW 12.3 % (11.5-15.5); WBC 18.9 k/uL (3.8-10.6)
--- NOTE | 2024-01-31 20:50 | XR ---
EXAMINATION TYPE: XR chest 1V portable DATE OF EXAM: 01/31/2024 8:40 PM CLINICAL INDICATION:Female, 58 years old with history of chf; COMPARISON: Chest radiographs from 08/17/2017 TECHNIQUE: XR chest 1V portable Frontal view of the chest. FINDINGS: Lungs/Pleura: There is no evidence of pleural effusion, focal consolidation, or pneumothorax. Pulmonary vascularity: Unremarkable. Heart/mediastinum: Cardiomediastinal silhouette is unremarkable. Musculoskeletal: No acute osseous pathology. IMPRESSION: No acute cardiopulmonary disease/process.
[2024-01-31] MEDS: IPRATROPIUM-ALBUTEROL 3 ML NEB INHALATION STA (21:09)
[2024-01-31 21:27] LABS: ALT 23 U/L (4-34); AST 25 U/L (14-36); African American GFR (CKD) 80 (>60 ml/min/1.73 sqM); Albumin 3.8 g/dL (3.5-5.0); Alkaline Phosphatase 97 U/L (38-126); Anion Gap 6 mmol/L; Blood Urea Nitrogen 16 mg/dL (7-17); Calcium 9.2 mg/dL (8.4-10.2); Carbon Dioxide 26 mmol/L (22-30); Chloride 103 mmol/L (98-107); Glucose 85 mg/dL (74-99); Non-African American GFR(CKD) 69 (>60 ml/min/1.73 sqM); Potassium 4.2 mmol/L (3.5-5.1); Sodium 135 mmol/L (137-145); Total Bilirubin 0.5 mg/dL (0.2-1.3); Total Protein 6.2 g/dL (6.3-8.2)
[2024-01-31] MEDS ORDERED: IPRATROPIUM-ALBUTEROL 3 ML NEB INHALATION STA (21:34)
[2024-01-31] MEDS: methylPREDNISolone SOD SUCCI 125 MG/2 ML VIAL IM ONE (21:51)
[2024-01-31 22:03] VITALS: BP 134/76; PULSE 86; RESP 20
== END 2024-01-31 22:03 | disposition home or self-care (01) ==
LOC: EC 19:49
DX: J40 Bronchitis, not specified as acute or chronic (principal); Z91.040 Latex allergy status; Z91.018 Allergy to other foods; Z91.09 Other allergy status, other than to drugs and biological substances; Z87.891 Personal history of nicotine dependence
CPT/HCPCS: 36415; 94640; 80053; 85025; 87636; 71045; 99406; 99285; 96372; J2919

== ENCOUNTER → 2024-06-21 | Outpatient (CLI) | payer BC ==
--- NOTE | 2024-06-21 20:31 | CT ---
EXAMINATION TYPE: CT pelvis w con DATE OF EXAM: 06/21/2024 5:39 PM COMPARISON: CT abdomen pelvis most recent from 10/25/2017 CLINICAL INDICATION: Female, 58 years old with history of R63.5 ABNORMAL WEIGHT GAIN; right groin peggy n, hx of hernia TECHNIQUE: Axial CT pelvis w con;Sagittal and coronal reformats were created on a separate workstati on. Contrast used:100ml mL of Isovue 300 with IV Contrast, (none if empty) Oral contrast used: with Oral Contrast (none if empty) CT DLP: 1260.2 mGycm, Automated exposure control for dose reduction was used. FINDINGS: BLADDER: No evidence for wall thickening or mass given limitations of exam. REPRODUCTIVE: The uterus is surgically absent. ABDOMEN & PELVIS STOMACH AND BOWEL: No evidence of bowel obstruction. Scattered colonic diverticula. The appendix is n ormal. PERITONEUM/RETROPERITONEUM: No evidence of pneumoperitoneum or free fluid. VASCULATURE: No evidence of aortic aneurysm. MUSCULOSKELETAL: No acute osseous abnormalities LYMPH NODES: No gross evidence for lymphadenopathy. SOFT TISSUE/ABDOMINAL WALL: Fat-containing umbilical hernia. No inguinal hernia is visualized. IMPRESSION: 1. No evidence for acute process involving the right groin. No hernia visualized. 2. No evidence for acute abdominal process. No evidence for lymphadenopathy or mass. 3. Colonic diverticulosis. 4. Normal-appearing appendix. 5. Fat-containing umbilical hernia. [facility], , 06/21/2024 8:29 PM
== END | disposition home or self-care (01) ==
LOC: RADCTMAIN 15:41
PROVIDERS: ATTEND Family Medicine
DX: K57.30 Diverticulosis of large intestine without perforation or abscess without bleeding (principal); K42.9 Umbilical hernia without obstruction or gangrene; R63.5 Abnormal weight gain
CPT/HCPCS: 72193; Q9967

== ENCOUNTER → 2024-07-10 | Outpatient (CLI) | payer BC ==
--- NOTE | 2024-07-12 08:01 | MM ---
Reason for Exam: Screening (asymptomatic). Last screening mammogram was performed 12 month(s) ago. Patient History: Menarche at age 12. First Full-Term at age 21. Hysterectomy at age 43. Postmenopausal. Patient has history of breast feeding. Progesterone for 1 year from age 50 until age 50. Core Biopsy on the Right side. 09/27/2001, Benign Stereotactic Core Biopsy on the right side. 01/16/2020, US discontinued breast bx RT on the right side. Mother had breast cancer, age 31. Risk Values: Giselle 5 year model risk: 3.8%. NCI Lifetime model risk: 20.5%. Prior Study Comparison: 02/15/2018 Bilateral Screening Mammogram, [facility]. 04/03/2019 Bilateral Screening Mammogram, [facility]. 01/12/2020 Right Diagnostic Mammogram, [facility]. 04/16/2020 Bilateral Diagnostic Mammogram, [facility]. 12/23/2021 Bilateral Screening Mammogram, [facility]. 12/26/2021 Left Diagnostic Mammogram, [facility]. 07/09/2023 Bilateral MG 3D screening mammo w/cad, [facility]. Tissue Density: The breasts are heterogeneously dense, which may obscure small masses. Findings: Analyzed By CAD. There is no suspicious group of microcalcifications or new suspicious mass in either breast. Benign-appearing calcifications. Overall Assessment: Benign, BI-RAD 2 Management: Screening Mammogram of both breasts in 1 year. . Patient should continue monthly self-breast exams. A clinical breast exam by your physician is recommended on an annual basis. This exam should not preclude additional follow-up of suspicious palpable abnormalities. Note on Giselle scores and lifetime risk: 1. A Giselle score greater than 3% is considered moderate risk. If this is the case, consider specialist referral to assess eligibility for a risk reducing agent. 2. If overall lifetime risk for the development of breast cancer is 20% or higher, the patient may qualify for future screening with alternating mammogram and breast MRI. [facility], , 07/12/2024 7:58 AM. Electronically signed and approved by: Jayce Archuleta M.D. Radiolog[facility]
== END | disposition home or self-care (01) ==
LOC: RADMAMWWP 13:33
PROVIDERS: ATTEND Obstetrics & Gynecology
DX: Z12.31 Encounter for screening mammogram for malignant neoplasm of breast (principal); Z78.0 Asymptomatic menopausal state; Z80.3 Family history of malignant neoplasm of breast; R92.333 Mammographic heterogeneous density, bilateral breasts
CPT/HCPCS: 77063; 77067